=== PATIENT | male | born 1990 | race Hispanic/Latino ===

== ENCOUNTER 2024-08-24 18:35 | Observation (INO) | payer OTHER, SELFPAY ==
[2024-08-24 18:54] VITALS: BP 160/109; PULSE 82; RESP 16; TEMP 36.4; O2SAT 96; BMI 29.3
[2024-08-24 19:04] VITALS: BP 141/91
[2024-08-24 19:52] LABS: Add Manual Diff / Slide Review NO; Basophils Absolute Auto 100 /uL (0-100); Basophils Percent Auto 0.5 % (0-2); Eosinophils Absolute Auto 100 /uL (0-450); Hematocrit 45.1 % (41-53); Hemoglobin 15.6 g/dL (13.5-17.5); Lymphocytes Absolute Auto 2300 /uL (1100-4500); Lymphocytes Percent Auto 23.4 % (25-40); Mean Corpuscular HGB Conc 34.5 % (30-36); Mean Corpuscular Hemoglobin 30.2 PG (26-34); Mean Corpuscular Volume 87.6 fL (80-100); Monocytes Absolute Auto 800 /uL (0-900); Monocytes Percent Auto 7.5 % (3-14); Neutrophils Absolute Auto 6800 /uL (1500-7000); Neutrophils Percent Auto 67.6 % (50-75); Platelet Count 216 X10^3/uL (150-400); Red Blood Cell Count 5.15 X10^6/uL (4.5-5.9); Red Cell Distribution Width 13.8 % (11.6-14.8)
[2024-08-24 20:05] LABS: Alanine Aminotransferase 27 IU/L (<50); Albumin 4.7 g/dL (3.5-5.0); Albumin Globulin Ratio 1.2 (1.0-2.8); Alkaline Phosphatase 66 U/L (38-126); Aspartate Aminotransferase 24 IU/L (17-59); BUN Creatinine Ratio 14.7 (6-22); Bilirubin Total 0.6 mg/dL (0.2-1.3); Blood Urea Nitrogen 11 mg/dL (9-20); Calcium 9.4 mg/dL (8.4-10.2); Carbon Dioxide 24 mmol/L (22-32); Chloride 100 mmol/L (98-107); Estimated Glomerular Filt Rate > 60 mL/min (>60); Globulin 3.9 g/dL (1.7-4.1); Glucose 96 mg/dL (70-100); HEMOLYSIS < 15 (0-50); Lipase 33 U/L (23-300); Potassium 3.8 mmol/L (3.4-5.1); Sodium 135 mmol/L (137-145); Total Protein 8.6 g/dL (6.3-8.2)
--- NOTE | 2024-08-24 21:03 | ED_ITS ---
HPI - Abdominal Pain General Chief Complaint: Abdominal Pain Stated Complaint: ABD PAIN, RLQ Time Seen by Provider: 08/24/24 21:03 Source: patient Mode of arrival: Ambulatory Limitations: no limitations History of Present Illness HPI narrative: 34-year-old male no reported medical issues who comes has 2 days of complaints bright lower quadrant pain states occasionally radiates to the flank but started periumbilical and then moved to the right lower quadrant. Denies fevers has had decreased appetite, denies any nausea or vomiting. States has been little bit constipated but did have a bowel movement this morning. Denies dysuria or frequency but has a little bit of sense of urgency. Patient states pain has not improved over the past 2 days. Denies any testicular pain. States he went to a walk-in told his urine was negative to be evaluated here. States no daily medications does take supplements. No prior surgeries. No reported drug allergies. No regular tobacco or alcohol use. Occasional marijuana. No other recreational drugs. Related Data Allergies Allergy/AdvReac Type Severity Reaction Status Date / Time No Known Allergies Allergy Uncoded 02/25/18 12:49 Review of Systems Review of Systems ROS Unobtainable: All systems reviewed & are unremarkable except as noted in HPI and below Patient History Social History Smoking Status: Former smoker Smoking Status: Former smoker alcohol intake frequency: a few times a week Substance Use Type: marijuana Exam Narrative Exam Narrative: GENERAL: Alert and oriented x three, male in mild distress HEENT: Head normocephalic, atraumatic, EOMI, pupils reactive, face symmetric, moist mucous membranes NECK: Supple, full range of motion CARDIOVASCULAR: Regular rate and rhythm without murmurs, rubs or gallops. RESPIRATORY: Breath sounds equal bilaterally, no wheezes rales or rhonchi. ABDOMEN: Soft, right lower quadrant tenderness Normoactive bowel sounds all 4 quadrants. No guarding or rebound, rigidity, no mass : Mild right CVA tenderness, no left CVA tenderness. EXTREMITIES: Normal range of motion, no clubbing or edema. Neurovascularly intact NEUROLOGICAL: Cranial nerves II through XII grossly intact. Moving all extremities SKIN: Warm, dry, no petechiae, no rashes or lesions. Initial Vital Signs Initial Vital Signs: Vital Signs Temperature 97.6 F 08/24/24 18:54 Pulse Rate 82 10/08/24 18:54 Respiratory Rate 16 08/24/24 18:54 Blood Pressure 160/109 H 08/24/24 18:54 Pulse Oximetry 96 08/24/24 18:54 Oxygen Delivery Method Room Air 08/24/24 18:54 Course Orders Ordered: ED Orders 08/24/24 19:04 EKG-12 Lead Stat 08/24/24 19:40 Complete Blood Count AUTO DIFF Stat Comprehensive Metabolic Panel Stat Lipase Stat 08/24/24 21:08 CT abdomen pelvis w con Stat Piperacillin Sod/Tazobactam (Sod 4.5 gm/ Sodium Chloride) 100 mls @ 200 mls/hr IV NOW ONE Stop: 08/24/24 22:14 Ondansetron HCl (Ondansetron 4 Mg/2 Ml Inj) 4 mg IV NOW PRN PRN Reason: Nausea And Vomiting Ondansetron HCl (Ondansetron 4 Mg Odt) 4 mg PO NOW PRN PRN Reason: Nausea And Vomiting Discontinued Medications Ketorolac Tromethamine (Ketorolac 30 Mg/Ml Vial) 15 mg IV NOW ONE Stop: 08/24/24 21:09 Last Admin: 08/24/24 21:14 Dose: 15 mg Documented By: [facility] Vital Signs Vital signs: Vital Signs - 8 hr 08/24/24 18:54 08/24/24 19:04 Temperature 97.6 F Pulse Rate 82 Respiratory Rate 16 Blood Pressure 160/109 H 141/91 H Pulse Oximetry 96 Oxygen Delivery Method Room Air MDM - Abdominal Pain Lab Data 08/24/24 19:40 08/24/24 19:40 Labs: Lab Results 08/24/24 Range/Units 19:40 WBC 10.0 (4.5-11.0) X10^3/uL RBC 5.15 (4.5-5.9) X10^6/uL Hgb 15.6 (13.5-17.5) g/dL Hct 45.1 (41-53) % MCV 87.6 (80-100) fL MCH 30.2 (26-34) PG MCHC 34.5 (30-36) % RDW 13.8 (11.6-14.8) % Plt Count 216 (150-400) X10^3/uL Neut % (Auto) 67.6 (50-75) % Lymph % (Auto) 23.4 L (25-40) % [place] % (Auto) 7.5 (3-14) % Eos % (Auto) 1.0 L (2-4) % Baso % (Auto) 0.5 (0-2) % Neut # (Auto) 6800 (9267-0045) /uL Lymph # (Auto) 2300 (5078-7960) /uL [place] # (Auto) 800 (0-900) /uL Eos # (Auto) 100 (0-450) /uL Baso # (Auto) 100 (0-100) /uL Sodium 135 L (137-145) mmol/L Potassium 3.8 (3.4-5.1) mmol/L Chloride 100 (98-107) mmol/L Carbon Dioxide 24 (22-32) mmol/L BUN 11 (9-20) mg/dL Creatinine 0.75 (0.66-1.25) mg/dL Estimated GFR > 60 (>60) mL/min BUN/Creatinine Ratio 14.7 (6-22) Glucose 96 (70-100) mg/dL Calcium 9.4 (8.4-10.2) mg/dL Total Bilirubin 0.6 (0.2-1.3) mg/dL AST 24 (17-59) IU/L ALT 27 (<50) IU/L Alkaline Phosphatase 66 (38-126) U/L Total Protein 8.6 H (6.3-8.2) g/dL Albumin 4.7 (3.5-5.0) g/dL Globulin 3.9 (1.7-4.1) g/dL Albumin/Globulin Ratio 1.2 (1.0-2.8) Lipase 33 (23-300) U/L Point of care testing: Urine Dip Bedside Urine Glucose Negative Bedside Urine Bilirubin - Negative Bedside Urine Ketone ++ 40 Urine Specific [place] 1.015 Bedside Urine Occult Blood - Negative Bedside Urine pH 7.0 Bedside Urine Protein - Negative Bedside Urine Urobilinogen - Negative Bedside Urine Nitrite - Negative Bedside Urine Leukocytes - Negative Esterase Imaging Data CT scan - abdomen/pelvis: Radiologist's Impression: Vance Saez??34??M??1990 ? Allergy/Adv: [No Known Allergies] Close Abdomen/Pelvis CT (Signed) Alberto Cole - 08/24/24 Launch?[address] [address] [address] Scan Report Signed Patient: Vance Saez MR#: [id number] : 1990 Acct:[id number] Age/Sex: 34 / M Date of Service: 08/24/24 Loc: ED Accession Number: [id number] Procedure: CT abdomen pelvis w con Ordering Provider: Laurel Ding D.O. PROCEDURE: CT ABDOMEN PELVIS W CON INDICATIONS: RLQ pain, flank pain, appy vs stone TECHNIQUE: After the administration of intravenous contrast, axial sections acquired from the lung bases to the pubic symphysis. Coronal and sagittal reformats were performed. For radiation dose reduction, the following was used: automated exposure control, adjustment of mA and/or kV according to patient size. COMPARISON: None. FINDINGS: Image quality: Diagnostic. Lower Chest: No significant findings. ABDOMEN: Liver: No solid mass. Gallbladder: No radiopaque gallstones or wall thickening. Biliary ducts: No biliary dilation. Pancreas: No ductal dilation. Spleen: Size is within normal limits. Adrenal Glands: No adrenal nodules. Kidneys and Ureters: No hydronephrosis. No solid mass. No complex renal cystic lesion which requires follow up. Stomach and Bowel: Normal colonic caliber, without significant wall thickening. Dilated fluid-filled appendix measuring up to 1.5 cm with wall thickening and surrounding inflammation. Moderate to large stool burden throughout the colon. Peritoneum: No abnormal intraperitoneal fluid. No free air. Ventral Wall: No significant ventral hernia. Abdominal Nodes: No retroperitoneal or mesenteric adenopathy by size criteria. Vessels: Aorta and inferior vena cava are normal in size. PELVIS: Pelvic Organs: Unremarkable. Bladder: Decompressed, limiting evaluation. Pelvic Nodes: No enlarged lymph nodes. Miscellaneous: No inguinal hernias are seen. Bones: No aggressive osseous abnormality. IMPRESSION: Findings consistent with acute uncomplicated appendicitis. No organized fluid collections or extraluminal gas. Moderate to large stool burden, correlate for constipation. Dictated by: Alberto Cole M.D. on 08/24/2024 at 22:04 Approved by: Alberto Cole M.D. on 08/24/2024 at 22:07 [facility] Narrative Medical decision making narrative: 34-year-old male with complaint of right lower quadrant pain that started periumbilical does have little bit of flank pain associated a little bit of sense of urgency but states a flank pain is rare. Labs show normal white count, hemoglobin and platelets. Sodium is 135 electrolytes and renal function are otherwise normal LFTs are normal total protein 8.6 lipase is 33. Urine shows ketones no other blood or nitrates or leukocyte esterase. CT abdomen pelvis shows acute uncomplicated appendicitis with a fluid-filled appendix measuring 1.5 cm with wall thickening surrounding inflammation moderate to large stool burden throughout the colon, no free air no abscess appreciated. Patient did receive Toradol. Spoke with Dr. Hair who accepts for admission, asked that him a dose of Zosyn. Discharge Plan Departure Patient Disposition: Admitted As Inpatient Clinical Impression: Acute appendicitis
--- NOTE | 2024-08-24 21:08 | DI.CT.S_ITS ---
PROCEDURE: CT ABDOMEN PELVIS W CON INDICATIONS: RLQ pain, flank pain, appy vs stone TECHNIQUE: After the administration of intravenous contrast, axial sections acquired from the lung bases to the pubic symphysis. Coronal and sagittal reformats were performed. For radiation dose reduction, the following was used: automated exposure control, adjustment of mA and/or kV according to patient size. COMPARISON: None. FINDINGS: Image quality: Diagnostic. Lower Chest: No significant findings. ABDOMEN: Liver: No solid mass. Gallbladder: No radiopaque gallstones or wall thickening. Biliary ducts: No biliary dilation. Pancreas: No ductal dilation. Spleen: Size is within normal limits. Adrenal Glands: No adrenal nodules. Kidneys and Ureters: No hydronephrosis. No solid mass. No complex renal cystic lesion which requires follow up. Stomach and Bowel: Normal colonic caliber, without significant wall thickening. Dilated fluid-filled appendix measuring up to 1.5 cm with wall thickening and surrounding inflammation. Moderate to large stool burden throughout the colon. Peritoneum: No abnormal intraperitoneal fluid. No free air. Ventral Wall: No significant ventral hernia. Abdominal Nodes: No retroperitoneal or mesenteric adenopathy by size criteria. Vessels: Aorta and inferior vena cava are normal in size. PELVIS: Pelvic Organs: Unremarkable. Bladder: Decompressed, limiting evaluation. Pelvic Nodes: No enlarged lymph nodes. Miscellaneous: No inguinal hernias are seen. Bones: No aggressive osseous abnormality. IMPRESSION: Findings consistent with acute uncomplicated appendicitis. No organized fluid collections or extraluminal gas. Moderate to large stool burden, correlate for constipation. Dictated by: Alberto Cole M.D. on 08/24/2024 at 22:04 Approved by: Alberto Cole M.D. on 08/24/2024 at 22:07
[2024-08-24] MEDS: KETOROLAC 30 MG/ML VIAL 15 MG IV (21:14)
[2024-08-24 22:23] VITALS: BMI 30.2
[2024-08-24] MEDS: PIPERACILLIN/TAZO 4.5 GM in SODIUM CHLORIDE 0.9% 100 ML IV (22:23)
[2024-08-24 23:01] VITALS: BP 141/81
[2024-08-25] VITALS (12 sets, daily range): BP systolic 120–160; BP diastolic 61–96; PULSE 60–105; RESP 12–18; TEMP 35.7–36.7; O2SAT 96–99; BMI 30.2
--- NOTE | 2024-08-25 | PATH_ITS ---
[facility] Accession Number: [id number] No. of containers..01 Tissue . 01 Material submitted: . appendix - APPENDIX . 01 Diagnosis: APPENDIX: Acute suppurative appendicitis. No dysplasia or malignancy identified. [facility] 08/27/2024 1206 Local . 01 Electronically signed: . Stu Wu MD, Pathologist NPI- [id number] . 01 Gross description: . Specimen is received in formalin, labeled with two patient identifiers and appendix and consists of a 5.5 x 1.5 x 1.4 cm, vermiform appendix with an attached 4.5 x 1.5 x 1.1 cm mesoappendix. The appendiceal resection margin is inked blue. The mesoappendix resection margin is inked black. The serosal surface is hart-white, smooth, glistening with slightly congested serosal vessels. The proximal half of the appendix is slightly dilated, and the appendiceal wall is white, fibrotic, uniformly thick, and averages 0.5 cm in thickness. There is a stellate lumen and no perforation is identified. [employer] Specialist sections are submitted in cassette A1. ([id number]) /MRV 08/27/2024 1206 Local . 01 Pathologist provided ICD-10: K35.80 . 01 CPT . 005650 Specimen Comment: A courtesy copy of this report has been sent to [phone] Performed at: [address] [id number] MD Stu Wu MD Phone: [phone]
--- NOTE | 2024-08-25 01:17 | PC.NURSE ---
Patient admitted to ACU at 23:05 from ED. Alert and oriented x 4, cooperative. Independent in room. Reports pain 5/10, which is tolerable. NPO. Oriented to room and call light, bed low and call light within reach.
--- NOTE | 2024-08-25 08:01 | EKG_ITS ---
[facility] [address] [place] [address] Test Date: 2024-08-25 Pat Name: Vance Saez Department: [facility] Room: 219 Gender: Male Team Member: THOMAS : 1990 Requested By: Order Number: [id number] Reading MD: Devyn Leger MD Measurements Intervals [place] Rate: 65 P: 34 ID: [id number] QRS: 17 QRSD: 84 T: 24 QT: 406 QTc: 422 Interpretive Statements Normal sinus rhythm with sinus arrhythmia Electronically Signed On 08-26-2024 7:53:55 PDT by Devyn Leger MD
[2024-08-25] MEDS: HYDROCODONE/ACET 5/325 TABLET 1 TAB PO ×2 (08:11→18:44)
[2024-08-25] MEDS: ONDANSETRON 4 MG/2 ML INJ IV (08:12)
[2024-08-25] MEDS: PIPERACILLIN/TAZO 4.5 GM in SODIUM CHLORIDE 0.9% 100 ML IV (08:12)
[2024-08-25] MEDS: SODIUM CHLORIDE 0.9% 1,000 ML 100 ML IV ×2 (08:16→17:59)
--- NOTE | 2024-08-25 08:40 | PM.HP.1 ---
History of Present Illness History of Present Illness Date Patient Seen: 08/25/24 Time Patient Seen: 08:41 Chief complaint: ABD PAIN, RLQ Narrative: Vance is a 34-year-old man who presented with 4 days of right-sided abdominal pain. CT scan showed acute appendicitis without evidence of perforation or abscess. No prior abdominal surgical history. [facility] Social History household members: spouse and children Smoking Status: Former smoker alcohol intake: current Meds Home Medications and Allergies Home Medications Medication Instructions Recorded Confirmed Type No Known Home Medications 08/24/24 08/24/24 History Allergies Allergy/AdvReac Type Severity Reaction Status Date / Time No Known Drug Allergies Allergy Verified 08/25/24 07:54 Exam Vital Signs (past 8 hours): - 08/25/24 02:35 Temperature 97.4 F L Pulse Rate 89 Respiratory Rate 18 Blood Pressure 144/89 H Pulse Oximetry 99 Oxygen Flow Rate 0 Oxygen Delivery Method Room Air Oxygen Flow Rate 0 Narrative Exam Narrative: Tender to palpation in the right abdomen Objective Labs 08/24/24 19:40 08/24/24 19:40 Labs: Laboratory Results - last 24 hr 08/24/24 19:40 WBC 10.0 RBC 5.15 Hgb 15.6 Hct 45.1 MCV 87.6 MCH 30.2 MCHC 34.5 RDW 13.8 Plt Count 216 Neut % (Auto) 67.6 Lymph % (Auto) 23.4 L [place] % (Auto) 7.5 Eos % (Auto) 1.0 L Baso % (Auto) 0.5 Neut # (Auto) 6800 Lymph # (Auto) 2300 [place] # (Auto) 800 Eos # (Auto) 100 Baso # (Auto) 100 Sodium 135 L Potassium 3.8 Chloride 100 Carbon Dioxide 24 BUN 11 Creatinine 0.75 Estimated GFR > 60 BUN/Creatinine Ratio 14.7 Glucose 96 Calcium 9.4 Total Bilirubin 0.6 AST 24 ALT 27 Alkaline Phosphatase 66 Total Protein 8.6 H Albumin 4.7 Globulin 3.9 Albumin/Globulin Ratio 1.2 Lipase 33 Assessment & Plan Assessment and plan (1) Acute appendicitis: Qualifiers: Acute appendicitis type: with localized peritonitis Appendicitis gangrene presence: without gangrene Appendicitis perforation presence: without perforation Appendicitis abscess presence: without abscess Qualified Code(s): K35.30 - Acute appendicitis with localized peritonitis, without perforation or gangrene Status: Acute Plan We discussed the diagnosis of acute appendicitis. We discussed the management of appendicitis to include open appendectomy, laparoscopic appendectomy or antibiotic therapy alone. I recommended laparoscopic appendectomy and he would like to proceed. We will plan for surgery this afternoon. We will likely day overnight tonight and be discharged in the morning. Time-Based Coding :: [TOTAL MINUTES] spent with patient and on the chart (including review of chart, obtaining history, exam, reviewing outside data, placing orders, documenting exam and treatment plan, and counseling patient) on [DATE].
[2024-08-25] MEDS: HYDROMORPHONE 1 MG INJ 0.5 MG IV ×4 (09:10→20:54)
--- NOTE | 2024-08-25 11:28 | CM.DANOTE ---
DPA Note: Chart reviewed, discussed in rounds, spoke with patient and spouse in room. Patient up walking the halls, pending surgery at 1500 today for lap appendectomy. Patient states he was ind previously and lives with his spouse and toddler son. Patient anticipated to stay one night post op and return home no needs. ROSY Peters Discharge Planning/Care Management CM Discharge Assessment Start: 08/25/24 11:26 Freq: Status: Active Protocol: Document 08/25/24 11:27 KG (Rec: 08/25/24 11:27 KG [id number]) Discharge Planning Assessment Assigned Customer Engineering Specialist Lizeth Gibbons DPOA/Assigned Designee Name Vance Saez Advance Directives? No History Provided By Patient Has Patient been admitted in last 30 No days? Prior Living Arrangements Apartment/Condo Household Members spouse,children Type of transporation used prior to Drives own vehicle admit Independent with ADL's Yes Is patient alert and oriented? Yes Caregiver for Another No Barriers to Discharge No Discharge Plan Home Referrals Initiated None needed
[2024-08-25] MEDS: PIPERACILLIN/TAZO 3.375 GM in SODIUM CHLORIDE 0.9% 100 ML IV ×2 (11:33→18:36)
--- NOTE | 2024-08-25 15:26 | SUR.OPER ---
Supine on padded OR bed, head on pillow, RIGHT arm secured on padded arm board at <90 degrees abduction, LEFT ARM PADDED AND TUCKED AT PATIENTS SIDE. legs uncrossed, safety belt at thigh, tape over blanket over lower legs.
[2024-08-25] MEDS: BUPIVACAINE 0.5% W/ EPI (PF) 30 ML VIAL INJ (16:18)
--- NOTE | 2024-08-25 16:53 | P.OP_ITS ---
Operative Date/Time/Diagnoses Date of procedure: 08/25/24 Time of procedure: 16:53 Pre-op diagnosis: Acute appendicitis Post-op diagnosis: same Procedure & Clinicians Procedure: Laparoscopic appendectomy Same procedure as scheduled: Yes Surgeon: Everett Hair Farm Equipment Assembler: Leo Mosquera Anesthesia Type: General Operative Notes Procedure in detail: The patient was on IV antibiotics. The patient was brought to the operating room, placed on the table in the supine position and general endotracheal anesthesia was induced. A time-out was performed. The abdomen was prepped and draped in the usual fashion. After injection of local anesthetic a 1 cm infraumbilical incision was created with a 15 blade scalpel. The umbilical stalk was grasped with a Padmini clamp to elevate the abdominal wall. The infraumbilical midline fascia was cleared over 1 cm and the fascia was scored with cautery. The peritoneum was pierced with a Peon clamp. The Janice port was placed and the abdomen was insufflated to 15 mmHg. The camera was inserted and there was no evidence of any injury from the entry. Next, 5 mm ports were placed in the suprapubic and left lower quadrant positions under direct vision. The patient was placed in Trendelenburg with the right-side elevated. The terminal ileum was swept away from the cecum and the appendix was visualized. The appendix was inflamed and distended but not perforated and there was no evidence of gangrene. The mesoappendix was divided with the Power-seal. Two PDS Endoloops were placed at the base and a 3rd endoloop was placed about a centimeter distally and the appendix was divided sharply. The specimen was placed in a Endo-Catch bag. A small amount of fluid with suctioned from the base of the appendix and pelvis. The table was flattened and the terminal ileum and omentum were allowed to slide in over the appendiceal stump. Finally, the 5 mm ports were removed under direct vision. The pneumoperitoneum was released and the Janice port was removed followed by the Endo-Catch bag. Additional local was injected into the fascia and the infraumbilical incision was closed with 2 interrupted 2-0 Vicryl sutures. The skin incisions were closed with 4 Monocryl. Steri-Strips were applied followed by Band-Aids. EBL: 5 mL Specimen: Appendix Leo MITCHELL provided assistance with exposure, retraction and closure of incisions. Post-operative Condition: stable Disposition: PACU
[2024-08-25] MEDS: IBUPROFEN 600 MG TABLET PO (18:44)
[2024-08-26 02:00] VITALS: BP 115/74; PULSE 73; RESP 16; TEMP 36.4; O2SAT 97
[2024-08-26] MEDS: PIPERACILLIN/TAZO 3.375 GM in SODIUM CHLORIDE 0.9% 100 ML IV (03:59)
[2024-08-26] MEDS: SODIUM CHLORIDE 0.9% 1,000 ML 100 ML IV (04:02)
[2024-08-26] MEDS: HYDROCODONE/ACET 5/325 TABLET 1 TAB PO (08:06)
[2024-08-26] MEDS: IBUPROFEN 600 MG TABLET PO (08:07)
--- NOTE | 2024-08-26 09:28 | PM.DS.1 ---
History of Present Illness History of Present Illness Date Patient Seen: 08/26/24 Time Patient Seen: 11:18 Chief complaint: ABD PAIN, RLQ Narrative: 34-year-old man presented with symptoms and radiographic findings consistent with acute appendicitis. Discharge Providers Provider Date of admission: 08/24/24 22:17 Discharge Date: 08/26/24 Discharge provider: Juan Ramon Ruiz MD Summary Hospital Course Discharge Diagnosis: Acute appendicitis Hospital Course: Patient underwent a laparoscopic appendectomy August 25, 2024. He was found to have acute non perforated appendicitis. Unremarkable postoperative stay. At discharge he is tolerant of diet ambulatory afebrile pains well-controlled. Exam Vital Signs (past 8 hours): - 08/26/24 02:00 Temperature 97.5 F L Pulse Rate 73 Respiratory Rate 16 Blood Pressure 115/74 Pulse Oximetry 97 Oxygen Flow Rate 0 Oxygen Delivery Method Room Air Oxygen Flow Rate 0 Narrative Exam Narrative: General adult man alert oriented no acute distress Abdomen soft appropriately tender to palpation. Band-Aids over incisions. Objective Labs 08/24/24 19:40 08/24/24 19:40 PFSH Social History household members: spouse and children Smoking Status: Former smoker alcohol intake: current Discharge Plan Discharge Plan Patient Disposition: Home Provider Discharge Comment: -Okay to shower -Do not submerge wounds in water until seen in follow-up. -No lifting >10 lbs x 4 weeks. -Walking only for exercise for 4 weeks. -No driving while taking narcotics. Discharge orders & Medications Prescriptions: New celecoxib [Celebrex] 200 mg capsule 200 mg PO BID Qty: 20 0RF docusate sodium [Colace] 100 mg capsule 100 mg PO BID Qty: 30 0RF oxycodone 5 mg tablet 5 mg PO Q6H PRN (Reason: pain) Qty: 20 0RF acetaminophen [Tylenol] 325 mg capsule 650 mg PO QID PRN (Reason: pain) Qty: 60 0RF Follow up/Referrals: Everett Hair MD [Physician] - 2 Weeks Diet/Activity/Treatments Diet: Diet as Tolerated Skin/Wound/Dressing Care Report to your healthcare provider any signs of infection, such as:: chills, fever, increased pain, unusual drainage and unusual redness Visit Report/Discharge Packet Instructions: DI for an Appendectomy, DI for Prescription Opioid Use Stand Alone Forms: Patient Portal/API, Stroke Signs & Symptoms Discharge Data Attending Provider: Everett Hair Admit Date/Time: 08/24/24 22:17
--- NOTE | 2024-08-26 11:49 | CM.DPNOTE ---
DCP Note SPEAKER MOUNTER reviewed EMR. pt discussed in morning rounds Per chart, surgeon cleared pt to dc home today. Per chart, home with family support no CM needs P: home today no CM needs anticipated. CM team will coninue to follow as needed ROSY Contreras
[2024-08-26 12:00] VITALS: BP 129/90; PULSE 92; RESP 22; TEMP 36.7; O2SAT 98
--- NOTE | 2024-08-26 13:15 | PC.NURSE ---
Day shift: Discharge instructions gone over with patient. All questions answered, patient stated understanding. PIV d/c'ed prior to discharge. All belongings with patient. MORIAH Salazar escorted patient via wheelchair to exit where patient's plans to drive him home.
--- NOTE | 2024-09-22 13:05 | PC.NURSE ---
Late entry note: Completed 08/25/24 IV zosyn dose at 8:14am on 08/25/24.
== END 2024-08-26 13:16 | disposition home or self-care (01) ==
LOC: ED 22:15 → AC 08-25 06:42
PROVIDERS: Admitting Provider Surgery; Emergency Provider Emergency Medicine; Referring Provider Emergency Medicine; Visit Provider Surgery
PROC: 0DTJ4ZZ Resection of Appendix, Percutaneous Endoscopic Approach (ICD-10-PCS; CPT 44970; principal; 2024-08-25 16:00)
DX: R10.31 Right lower quadrant pain (principal); K35.80 Unspecified acute appendicitis
CPT/HCPCS: 44970; 36415; 74177; 80053; 81003; 83690; 85025; 93005; 93010; 96361; 96365; 96375; 96376; 99222; 99284; G0378; J0330; J1100; J1171; J1885; J2250; J2405; J2543; J2704; J3010; J3490; Q9967